=== PATIENT | male | born 1960 | race Caucasian/White ===

== ENCOUNTER 2016-03-07 22:31 | Inpatient (IN) | payer OTHER, MEDICAID ==
--- NOTE | 2016-03-07 23:29 | EDPHY ---
H & P Stated Complaint: M1 Hold Time Seen by Provider: 03/07/16 23:19 HPI/ROS: CHIEF COMPLAINT: Schizophrenia HISTORY OF PRESENT ILLNESS: Patient is a 55-year-old man with a history of schizophrenia who's therapist called police to go check on him today. The police found him in an apartment that was disheveled and without any food. His therapist told them that he was having command hallucinations although did not give any specific examples. The patient denies that he has. He denies hearing voices. He denies suicidal or homicidal ideations. He denies any recent illness. REVIEW OF SYSTEMS: Constitutional: denies: chills, fever, recent illness, recent injury EENTM: denies: blurred vision, double vision, nose congestion Respiratory: denies: cough, shortness of breath Cardiac: denies: chest pain, irregular heart rate, lightheadedness, palpitations Gastrointestinal/Abdominal: denies: abdominal pain, diarrhea, nausea, vomiting, blood streaked stools Genitourinary: denies: dysuria, frequency, hematuria, pain Musculoskeletal: denies: joint pain, muscle pain Skin: denies: lesions, rash, jaundice, bruising Neurological: denies: headache, numbness, paresthesia, tingling, dizziness, weakness Hematologic/Lymphatic: denies: blood clots, easy bleeding, easy bruising Immunologic/allergic: denies: HIV/AIDS, transplant EXAM: GENERAL: Disheveled HEAD: Atraumatic, normocephalic. EYES: Pupils equal round and reactive to light, extraocular movements intact, sclera anicteric, conjunctiva are normal. ENT: TMs normal, nares patent, oropharynx clear without exudates. Moist mucous membranes. NECK: Normal range of motion, supple without lymphadenopathy or JVD. LUNGS: Breath sounds clear to auscultation bilaterally and equal. No wheezes rales or rhonchi. HEART: Regular rate and rhythm without murmurs, rubs or gallops. ABDOMEN: Soft, nontender, normoactive bowel sounds. No guarding, no rebound. No masses appreciated. BACK: No CVA tenderness, no spinal tenderness, step-offs or deformities EXTREMITIES: diffuse excoriation NEUROLOGICAL: Cranial nerves II through XII grossly intact. Normal speech, normal gait. 5/5 strength, normal movement in all extremities, normal sensation PSYCH: Watching [employer] TV, minimally cooperative with questioning. SKIN: Warm, dry, normal turgor, no visible rashes or lesions. Source: Patient, Police - Personal History Current Tetanus Diphtheria and Acellular Pertussis (TDAP): Unsure - Medical/Surgical History Hx Asthma: No Hx Chronic Respiratory Disease: No Hx Diabetes: No Hx Cardiac Disease: No Hx Renal Disease: No Hx Cirrhosis: No Hx Alcoholism: Yes Hx HIV/AIDS: No Hx Splenectomy or Spleen Trauma: No Other PMH: Seizures, bipolar, schitzophrenia, depression. - Family History Significant Family History: Hypertension - Social History Smoking Status: Former smoker Alcohol Use: Heavy Drug Use: Marijuana Constitutional: Initial Vital Signs Temperature (C) 36.6 C 03/07/16 22:40 Heart Rate 105 H 03/07/16 22:40 Respiratory Rate 16 03/07/16 22:40 Blood Pressure 154/107 H 03/07/16 22:40 O2 Sat (%) 94 03/07/16 22:40 O2 Delivery Mode Room Air Allergies/Adverse Reactions: No Known Allergies Allergy (Unverified 03/07/16 23:24) Home Medications: Medication Instructions Recorded [facility] 03/07/16 Medical Decision Making ED Course/Re-evaluation: 2:45 a.m. patient accepted at [address] [place] [id number] Rollins. Patient has been medically cleared. Differential Diagnosis: Partial list of the Differential diagnosis considered include but were not limited to; schizophrenia, hallucinations, paranoia, substance abuse and although unlikely based on the history and physical exam, I also considered head injury, infection. - Data Points Laboratory Results: Laboratory Results 03/07/16 23:10 03/07/16 23:10 03/07/16 03/07/16 23:10 22:45 WBC 7.01 10^3/uL (3.80-9.50) RBC 4.72 10^6/uL (4.40-6.38) Hgb 14.6 g/dL (13.7-17.5) Hct 43.3 % (40.0-51.0) MCV 91.7 fL (81.5-99.8) MCH 30.9 pg (27.9-34.1) MCHC 33.7 g/dL (32.4-36.7) RDW 14.7 % (11.5-15.2) Plt Count 175 10^3/uL (150-400) MPV 11.5 fL (8.7-11.7) Neut % (Auto) 53.4 % (39.3-74.2) Lymph % (Auto) 32.4 % (15.0-45.0) [place] % (Auto) 8.6 % (4.5-13.0) Eos % (Auto) 4.6 % (0.6-7.6) Baso % (Auto) 0.7 % (0.3-1.7) Nucleat RBC Rel Count 0.0 % (0.0-0.2) Absolute Neuts (auto) 3.75 10^3/uL (1.70-6.50) Absolute Lymphs (auto) 2.27 10^3/uL (1.00-3.00) Absolute Monos (auto) 0.60 10^3/uL (0.30-0.80) Absolute Eos (auto) 0.32 10^3/uL (0.03-0.40) Absolute Basos (auto) 0.05 10^3/uL (0.02-0.10) Absolute Nucleated RBC 0.00 10^3/uL (0-0.01) Immature Gran % 0.3 % (0.0-1.1) Immature Gran # 0.02 10^3/uL (0.00-0.10) Sodium 141 mEq/L (134-144) Potassium 3.6 mEq/L (3.5-5.2) Chloride 103 mEq/L (97-110) Carbon Dioxide 30 mEq/l (22-31) Anion Gap 8 mEq/L (8-16) BUN 7 mg/dL (7-23) Creatinine 0.9 mg/dL (0.7-1.3) Estimated GFR > 60 Glucose 93 mg/dL (70-100) Calcium 8.9 mg/dL (8.5-10.4) Urine Opiates Screen NEGATIVE (NEGATIVE) Urine Barbiturates NEGATIVE (NEGATIVE) Ur Phencyclidine Scrn NEGATIVE (NEGATIVE) Ur Amphetamine Screen NEGATIVE (NEGATIVE) U Benzodiazepines Scrn NON-NEGATIVE H (NEGATIVE) Urine Cocaine Screen NEGATIVE (NEGATIVE) U Marijuana (THC) Screen NEGATIVE (NEGATIVE) Ethyl Alcohol < 10 mg/dL (0-10) Departure - Departure Disposition: [facility] IP Clinical Impression: Acute psychosis Condition: Fair
[2016-03-07 23:43] LABS: % IMMATURE GRANULYOCYTES 0.3 % (0.0-1.1); ABSOLUTE IMMATURE GRANULOCYTES 0.02 10^3/uL (0.00-0.10); ADD DIFF? NO; ADD MORPH? NO; ADD SCAN? NO; ATYPICAL LYMPHOCYTE FLAG 10 (0-99); FRAGMENT RBC FLAG 0 (0-99); HEMATOCRIT 43.3 % (40.0-51.0); HEMOGLOBIN 14.6 g/dL (13.7-17.5); LEFT SHIFT FLG 0 (0-99); LIPEMIA HEMOLYSIS FLAG 80 (0-99); MEAN CELL HEMOGLOBIN 30.9 pg (27.9-34.1); MEAN CELL HEMOGLOBIN CONCENTR. 33.7 g/dL (32.4-36.7); MEAN CELL VOLUME 91.7 fL (81.5-99.8); MEAN PLATELET VOLUME 11.5 fL (8.7-11.7); PLATELET CLUMPS FLAG 0 (0-99); PLATELET COUNT 175 10^3/uL (150-400); RED BLOOD CELL COUNT 4.72 10^6/uL (4.40-6.38); RED CELL DISTRIBUTION WIDTH 14.7 % (11.5-15.2)
[2016-03-07 23:55] LABS: ANION GAP 8 mEq/L (8-16); CALCIUM 8.9 mg/dL (8.5-10.4); CARBON DIOXIDE 30 mEq/l (22-31); CHLORIDE 103 mEq/L (97-110); CREATININE 0.9 mg/dL (0.7-1.3); ETHANOL SERUM < 10 mg/dL (0-10); GLOMERULAR FILTRATION RATE > 60; GLUCOSE 93 mg/dL (70-100); POTASSIUM 3.6 mEq/L (3.5-5.2); SODIUM 141 mEq/L (134-144)
[2016-03-08] MEDS ORDERED: BENZTROPINE MESYLATE 1 MG TAB PO PRN (01:53)
[2016-03-08] MEDS ORDERED: NICOTINE POLACRILEX 2 MG GUM B PRN (01:54)
[2016-03-08] MEDS ORDERED: MAGNESIUM HYDROXIDE 30 ML UDCUP PO PRN (01:54)
[2016-03-08] MEDS ORDERED: LORazepam 0.5 MG TAB PO PRN (01:54)
[2016-03-08] MEDS ORDERED: MAG HYDROX/AL HYDROX/SIMETH 30 ML UDCUP PO PRN (01:54)
[2016-03-08] MEDS ORDERED: ACETAMINOPHEN 325 MG TAB PO PRN (01:54)
[2016-03-08] MEDS: TEMAZEPAM 15 MG CAP PO SCH ×2 (02:34→21:27)
[2016-03-08] MEDS ORDERED: OLANZapine DISINTEGR 10 MG TAB PO PRN (07:43)
[2016-03-08] MEDS: ARIPiprazole 5 MG TAB PO SCH (08:35)
[2016-03-08] MEDS ORDERED: VIIBRYD 40MG PO SCH (09:00)
[2016-03-08] MEDS ORDERED: diphenhydrAMINE 25 MG CAP PO PRN (10:24)
--- NOTE | 2016-03-08 12:36 | BAPA ---
[f rep st] ADMISSION PSYCHIATRIC ASSESSMENT DATE OF SERVICE: 03/08/2016 This is an initial psychiatric evaluation. CHIEF COMPLAINT: "I was itching all over." HISTORY OF PRESENT ILLNESS: The patient is a 55-year-old single male with a long history of chronic schizophrenia, who is followed at [facility] in [place]. The patient's therapist called police to do a welfare check on him on 03/07/16. Police found him in an apartment that was disheveled , and without any food. The patient had also thrown out his furniture. It appeared that the patient had been off his psychiatric meds for some time; however, he stated he has only been off them for 2 days, however he is a poor historian. The hold read. "respondent was contacted in his home, and Law Enforcement notified that there was no food in his home and respondent had thrown out his furniture. Respondent is having command hallucinations to scratch his body. Respondent is gravely disabled." The patient had been dropped off at the walk-in clinic by [facility] after they responded to a welfare check with Alee TRIMBLE. They discovered that the patient had thrown out his furniture, had no food in his refrigerator, and could not report when he last ate. Per [facility] log, the recovery resident caregiver, RCC, stated that the patient's landlord reported the patient was throwing out furniture and had reported to staff that he was not taking his medications. The patient had been encouraged to restart his medications but refused and stated that his medications were not working. RCC reported to [facility] that the patient was not at his baseline and was decompensating. After being evaluated by [facility] at the walk-in clinic, the patient was sent to [facility] for medical clearance. The patient has a long history of schizophrenia and depression. The patient currently denies any suicidal or homicidal ideation; however, the patient did admit to feeling depressed and stated his depression is "much worse. " PSYCHIATRIC HISTORY: Records state the patient was hospitalized in 2010 at [facility] in [place], and shortly thereafter he threatened his own health in 2011 by drinking too much water, which required stabilization in [facility]. The patient reports to this MD he has been at [facility] twice. He states he started hearing voices at age 26 while he was working and states he has been on disability for 8 years for schizophrenia. The patient has a history of auditory hallucinations. He has a delusion that people are still after him for stealing from an employer in the and also recent delusions about moving and about people being after him. He believes that 2 men called "Klarissa" bought a machine causing him to itch. The patient sees Anna Luciano MD, and therapist Sundeep Villegas and is supposed to be taking Abilify 15 mg q.a.m. , Viibryd 20 mg 2 tablets in the morning, Cogentin 0.5 b.i.d. p.r.n. EPS, and Restoril 30 mg q.h.s. The patient currently reports he is eating and sleeping well. MEDICAL PROBLEMS: None reported. SUBSTANCE ABUSE: The patient states he will have an occasional beer. He was negative for all substances except benzodiazepines. BAL was negative. FAMILY HISTORY: None known. SOCIAL HISTORY: The patient states he was born in [place]. He graduated high school and had 1 semester of college and then dropped out. He has 1 brother who lives in [place], and his father lives in [place]. The patient states his mother . He denies any history of abuse. Denies any family psychiatric history or addiction history in his family. The patient is single with no children. Never been . Lives alone in an apartment in [place]. He is socially isolated and has not seen his friends in a while. In the past, he worked at [employer] and [employer]. 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 The patient reportedly spent time in care home in 1989 after he was chased by police and spent a brief time in care home after being accused of stealing from his employer. He states he enjoys skiing and playing basketball. MENTAL STATUS EXAMINATION: The patient is alert and oriented x4. Poor eye contact but calm and cooperative. Mood is neutral. Affect is constricted. Thoughts are illogical. The patient appears to be responding to internal stimuli but currently denies auditory or visual hallucinations. Denies suicidal or homicidal ideation. Patient with chronic paranoid ideation. States sleep, appetite, and energy level are good. Speech is rambling, difficult to understand. He talks about men causing him itching all over . Positive somatic preoccupation. Insight and judgment are limited. IMPRESSION: Chronic disorganized schizophrenia. No medical problems. No substance abuse. Global Assessment of Functioning on admission is 20. PLAN: We will restart the patient's medications, which include Abilify 15 mg daily, Cogentin 0.5 mg b.i.d. p.r.n., Restoril 30 mg q.h.s. Vibryd is nonformulary. We will also order Benadryl 25 mg q.6 hours p.r.n itching, nicotine gum, and lorazepam and Zyprexa p.r.n. The patient will be seen by the career counselor and the medical physician. He meets criteria for inpatient hospitalization at this time. /[id number]/MODL MTDD
[2016-03-08] MEDS: VIIBRYD 20 MG PO SCH (15:33)
[2016-03-08] MEDS: amLODIPine BESYLATE 5 MG TAB PO SCH (16:20)
--- NOTE | 2016-03-08 16:47 | GCON ---
[f rep st] CONSULTATION INTERNAL MEDICINE CONSULTATION DATE OF CONSULTATION: 03/08/2016 REFERRING PHYSICIAN: Fariba Moreno MD REASON FOR REFERRAL: Medical clearance for inpatient behavioral health stay. HISTORY OF PRESENT ILLNESS: Mr. Cruz was brought to the emergency department by police after a welfare check, which had been called in by his therapist. He has a history of schizophrenia. He was found in an apartment that was disheveled. He had no food and had been throwing his furniture out of the apartment. He was evaluated in the emergency department and transferred to inpatient behavioral health for further psychiatric care. Currently, he complains of feeling itchy. He denies any rash. Otherwise, he is without any acute medical complaints. PAST MEDICAL HISTORY: 1. Schizophrenia. 2. Hypertension. PAST SURGICAL HISTORY: He reports he had surgical repair on his right ear, having been bit by dog. MEDICATIONS: 1. Benztropine 0.5 mg p.o. b.i.d. p.r.n. 2. Vilazodone 40 mg p.o. daily. 3. Temazepam 30 mg p.o. q.h.s. 4. Aripiprazole 15 mg p.o. daily. ALLERGIES: There are no known drug allergies. SOCIAL HISTORY: He lives alone in an apartment. He has worked in the past, but currently he lives on disability. He is a former smoker. The emergency department note reports that he is a marijuana user. FAMILY HISTORY: Noncontributory. REVIEW OF SYSTEMS: He confirms feeling itchy. He denies any rash and specifically, there is no rash or itchiness in the web spaces between his fingers or toes. Otherwise, a 10-point review of systems was negative. PHYSICAL EXAM: VITALS: Blood pressure is 164/96 at 2:17 this morning, heart rate was 86, respiratory rate was 16, oxygen saturation is 97% on room air, temperature is 36.4 degrees centigrade. His weight is 111.1 kg for a body mass index of 36.2. GENERAL: This is an obese man, appears his chronologic age, cooperative, and in no acute distress. HEENT: Extraocular movements are intact. Pupils are equal, round, and reactive to light. Mucous membranes are moist. Dentition is in good condition. He has an uncrowded airway, Mallampati class 1. NECK: Supple. HEART: There is a regular rate and rhythm with no murmurs, rubs, or gallops. LUNGS: Clear to auscultation bilaterally. ABDOMEN : Soft, nontender, nondistended with normoactive bowel sounds. EXTREMITIES: There is no cyanosis, clubbing, or edema. SKIN: There is no rash on his back, but there are multiple areas of excoriation. There are no findings in the web spaces of the fingers. NEUROLOGIC: He is alert. Orientation was not tested. He is somewhat distracted. Cranial nerves 2-12 are grossly intact. There is no focal weakness. Sensation is intact to light touch. Gait: He is slow to initiate with short steps and a wide base; however, subsequently his gait normalizes. He does have en bloc turning. LABORATORY STUDIES: Drawn in the emergency department: CBC was completely within normal limits. Serum chemistry revealed normal renal function and electrolytes. Toxicology screen in the serum was negative for ethyl alcohol. In the urine was non-negative for benzodiazepines and was otherwise negative for substances of abuse. ASSESSMENT AND RECOMMENDATIONS: 1. Mental health issues: Pending further evaluation and management per Psychiatry and the mental health team. 2. Hypertension: He is unclear as to what medications he may have taken before. I will start amlodipine 5 mg p.o. daily. He should have serial monitoring of his blood pressure, and would consider titrating or adding additional medications should he not have adequate control. 3. Obesity: Consider caution regarding medications which could cause further weight gain; however, psychosocial stabilization remains first priority. Given his history of hypertension, I will add a lipid panel to determine whether he needs further primary prevention of cardiovascular risk factors. 4. Pruritus: I will prescribe a skin emollient. I will also order a set of liver function tests to rule out any other possible metabolic causes of his pruritus. I see no medical contraindications to the patient's continued stay in the inpatient behavioral health unit, or to any psychiatric medications or procedures. Thank you very much for including me in the care of this patient, and please do not hesitate to contact me should there be a need for further medical evaluation. /[id number]/MODL MTDD
[2016-03-08 20:32] LABS: ALANINE AMINOTRANSFERASE 26 IU/L (21-72); ALBUMIN 3.3 g/dL (3.5-5.0); ALKALINE PHOSPHATASE 72 IU/L (38-126); ASPARTATE AMINOTRANSFERASE 26 IU/L (17-59); BILIRUBIN,TOTAL 0.9 mg/dL (0.1-1.4); BILIRUBIN-CONJUGATED 0.4 mg/dL (0.0-0.5); BILIRUBIN-UNCONJUGATED 0.5 mg/dL (0.0-1.1); CHOLESTEROL 134 mg/dL (140-220); CHOLESTEROL/HDL RATIO 3.19 RATIO (1.00-4.97); HIGH DENSITY LIPOPROTEIN 42 mg/dL (40-65); LDL/HDL RATIO 1.52 RATIO (1.00-3.64); LOW DENSITY LIPOPROTEIN 64 mg/dL (80-100); NON-HIGH DENSITY LIPOPROTEIN 92 mg/dL (90-129); TOTAL PROTEIN 6.1 g/dL (6.3-8.2); TRIGLYCERIDE 144 mg/dL (40-150); VERY LOW DENSITY LIPOPROTEINS 28 mg/dL (8-25)
[2016-03-08] MEDS: AQUAPHOR OINTMENT 3.5 OZ JAR TP SCH (21:27)
[2016-03-09] MEDS: ARIPiprazole 5 MG TAB PO SCH (09:01)
[2016-03-09] MEDS: VIIBRYD 20 MG PO SCH (09:02)
[2016-03-09] MEDS: amLODIPine BESYLATE 5 MG TAB PO SCH (09:02)
[2016-03-09] MEDS: AQUAPHOR OINTMENT 3.5 OZ JAR TP SCH ×2 (09:04→20:48)
--- NOTE | 2016-03-09 11:27 | SOAPPROG ---
RAVI Progress Note Assessment/Plan: Assessment: Pt is a 55 y/o S Hisp male with a long hx of Schizophrenia who was put on an M1 after a welfare check. The pt had been off his psych meds and had thrown his furniture outside and was delusional about moving and had decompensated from baseline. He was deemed to be gravely disabled and reportedly had not been eating regularly. Plan:con't pt's outpt meds pt will be put on a STC will consider WH when more stable. 03/09/16 11:22 Subjective: "Okay." Objective: Vital Signs Temp Pulse Resp BP Pulse Ox 35.7 C L 73 12 159/79 H 97 03/09/16 06:00 03/09/16 06:00 03/09/16 06:00 03/09/16 06:00 03/09/16 06:00 Pt is A+O mood-neutral affect-blunted denies AH but appears to be responding to internal stimuli thoughts-poverty of thought content, paranoid no S/H I only slept 1.5 hours last night he states he is eating and he is attending groups + delusions that he is moving speech-rambling, mumbles, hard to understand +FERNANDA memory/conc-impaired by psychosis I/J-limited - Time Spent With Patient Time Spent With Patient: 20' - Pending Discharge Pending Discharge Within 24 Hours: No Pending Discharge Within 48 Hours: No ICD10 Worksheet Patient Problems: Problems Problem Status Diagnosed Acute psychosis Acute
[2016-03-09] MEDS: TEMAZEPAM 15 MG CAP PO SCH (20:42)
[2016-03-10] MEDS: VIIBRYD 20 MG PO SCH (08:02)
[2016-03-10] MEDS: ARIPiprazole 5 MG TAB PO SCH (08:03)
[2016-03-10] MEDS: amLODIPine BESYLATE 5 MG TAB PO SCH (08:07)
[2016-03-10] MEDS: AQUAPHOR OINTMENT 3.5 OZ JAR TP SCH ×2 (08:08→20:26)
--- NOTE | 2016-03-10 13:34 | SOAPPROG ---
SOAP Progress Note Assessment/Plan: Assessment: Plan: 03/10/16 13:34 Slow improvement. CCM. Subjective: Pt seen, discussed with staff. Reports doing well. Sitting in day room quietly. Staring at TV that is off. Minimally interactive with others. Agrees to stay voluntarily. Compliant with meds. Objective: Vital Signs Temp Pulse Resp BP Pulse Ox 36.3 C 84 14 126/86 H 97 03/10/16 06:00 03/10/16 06:00 03/10/16 06:00 03/10/16 08:07 03/10/16 06:00 - Time Spent With Patient Time Spent With Patient: 15" - Pending Discharge Pending Discharge Within 24 Hours: No Pending Discharge Within 48 Hours: No ICD10 Worksheet Patient Problems: Problems Problem Status Diagnosed Acute psychosis Acute
[2016-03-10] MEDS: TEMAZEPAM 15 MG CAP PO SCH (21:37)
[2016-03-11] MEDS: ARIPiprazole 5 MG TAB PO SCH (08:36)
[2016-03-11] MEDS: amLODIPine BESYLATE 5 MG TAB PO SCH (08:37)
[2016-03-11] MEDS: AQUAPHOR OINTMENT 3.5 OZ JAR TP SCH ×2 (08:42→21:34)
[2016-03-11] MEDS: VIIBRYD 20 MG PO SCH (09:06)
[2016-03-11] MEDS: TEMAZEPAM 15 MG CAP PO SCH (21:35)
[2016-03-12] MEDS: ARIPiprazole 5 MG TAB PO SCH (07:36)
[2016-03-12] MEDS: amLODIPine BESYLATE 5 MG TAB PO SCH (07:36)
[2016-03-12] MEDS: AQUAPHOR OINTMENT 3.5 OZ JAR TP SCH ×2 (10:16→20:57)
[2016-03-12] MEDS: VIIBRYD 20 MG PO SCH (10:24)
--- NOTE | 2016-03-12 10:56 | SOAPPROG ---
RAVI Progress Note Assessment/Plan: Assessment: Pt is a 55 y/o S Hisp male with a long hx of Schizophrenia who was put on an M1 after a welfare check. The pt had been off his psych meds and had thrown his furniture outside and was delusional about moving and had decompensated from baseline. He was deemed to be gravely disabled and reportedly had not been eating regularly. 03/12/16-pt still with poor ADL's and needing assistance-when pt at baseline he does his own ADL's Plan:con't pt's outpt meds pt is on a STC will consider WH when more stable. 03/12/16 10:53 Subjective: no c/o but was asking another staff if he could go home Objective: Vital Signs Temp Pulse Resp BP Pulse Ox 36.8 C 78 16 157/82 H 99 03/12/16 00:30 03/12/16 00:30 03/12/16 00:30 03/12/16 00:30 03/12/16 00:30 Pt is A+O disheveled mood-neutral affect-flat +AH + somatic delusions thoughts-poverty of thought content speech-monotone slept 7.5 hours good appetite no S/H I no FERNANDA no VH memory/conc-poor I/J-limited - Time Spent With Patient Time Spent With Patient: 20' - Pending Discharge Pending Discharge Within 24 Hours: No Pending Discharge Within 48 Hours: No ICD10 Worksheet Patient Problems: Problems Problem Status Diagnosed Acute psychosis Acute
--- NOTE | 2016-03-12 11:23 | SOAPPROG ---
SOAP Progress Note Assessment/Plan: Assessment: Plan: 03/10/16 13:34 Slow improvement. CCM. 03/12/16 11:22 No interval change. CCM. Subjective: LATE ENTRY FOR 03/11/16 Pt seen, discussed with staff. Reports feeling "OK." Continues to sit in day room, but not interact with others. Gives one word answers to questions. Adequately groomed, generally coop. Compliant with meds. Objective: Vital Signs Temp Pulse Resp BP Pulse Ox 36.8 C 78 16 157/82 H 99 03/12/16 00:30 03/12/16 00:30 03/12/16 00:30 03/12/16 00:30 03/12/16 00:30 MSE: Calm, coop, though guarded. Affect is blunted, almost flat. Mood is "OK. " TP abbreviated with notable poverty of thought. TC reveals likely paranoia. - Time Spent With Patient Time Spent With Patient: 15" - Pending Discharge Pending Discharge Within 24 Hours: No Pending Discharge Within 48 Hours: No ICD10 Worksheet Patient Problems: Problems Problem Status Diagnosed Acute psychosis Acute
[2016-03-12] MEDS: TEMAZEPAM 15 MG CAP PO SCH (20:56)
[2016-03-13] MEDS: amLODIPine BESYLATE 5 MG TAB PO SCH (08:16)
[2016-03-13] MEDS: ARIPiprazole 5 MG TAB PO SCH (08:16)
[2016-03-13] MEDS: AQUAPHOR OINTMENT 3.5 OZ JAR TP SCH ×2 (08:19→20:37)
[2016-03-13] MEDS: VIIBRYD 20 MG PO SCH (08:32)
[2016-03-13] MEDS ORDERED: ARIPIPRAZOLE (ABILIFY MAINTENA) 400 MG VIAL IM ONE (10:45)
--- NOTE | 2016-03-13 11:13 | SOAPPROG ---
RAVI Progress Note Assessment/Plan: Assessment: Pt is a 55 y/o S Hisp male with a long hx of Schizophrenia who was put on an M1 after a welfare check. The pt had been off his psych meds and had thrown his furniture outside and was delusional about moving and had decompensated from baseline. He was deemed to be gravely disabled and reportedly had not been eating regularly. 03/12/16-pt still with poor ADL's and needing assistance-when pt at baseline he does his own ADL's 03/13/16-pt is improving but needs pants that fit-agrees to take Abilify Maintain injection-ordered Plan:con't pt's outpt meds pt is on a STC will consider WH Thurs Pt has agreed to get an Abilify Maintaina injection 03/13/16 11:11 Subjective: no c/o Objective: Vital Signs Temp Pulse Resp BP Pulse Ox 36.3 C 85 14 140/91 H 96 03/13/16 08:21 03/13/16 08:21 03/13/16 00:30 03/13/16 08:21 03/13/16 08:21 Pt is A+O calm mood-neutral affect-blunted denies A/V H + chronic delusions of these 2 men that made a machine in 2008 that caused him to itch denies current A/V H pt is attending groups attending to ADL's thoughts-logical but with poverty of thought content speech-monotone memory-fair conc-fair no FERNANDA I/J-fair - Time Spent With Patient Time Spent With Patient: 20' - Pending Discharge Pending Discharge Within 24 Hours: No Pending Discharge Within 48 Hours: Yes Pending Discharge Date: 03/15/16 Pending Discharge Time: 11:00 ICD10 Worksheet Patient Problems: Problems Problem Status Diagnosed Acute psychosis Acute
[2016-03-13] MEDS: TEMAZEPAM 15 MG CAP PO SCH (20:48)
[2016-03-14] MEDS: ARIPiprazole 5 MG TAB PO SCH (08:35)
[2016-03-14] MEDS: VIIBRYD 20 MG PO SCH (08:36)
[2016-03-14] MEDS: amLODIPine BESYLATE 5 MG TAB PO SCH (08:36)
[2016-03-14] MEDS: AQUAPHOR OINTMENT 3.5 OZ JAR TP SCH ×2 (09:09→21:22)
--- NOTE | 2016-03-14 13:33 | SOAPPROG ---
SOAP Progress Note Assessment/Plan: Assessment: Plan: 03/10/16 13:34 Slow improvement. CCM. 03/12/16 11:22 No interval change. CCM. 03/14/16 13:32 Approaching baseline. CCM. Subjective: Pt seen, discussed with staff. Remains quiet, internally focused. Present in the milieu and attending groups. He offers no c/o's. Agreeable to going to . Compliant with meds. Objective: Vital Signs Temp Pulse Resp BP Pulse Ox 36.3 C 92 14 132/81 H 97 03/14/16 00:30 03/14/16 08:52 03/14/16 08:52 03/14/16 08:52 03/14/16 08:52 MSE: Marginally groomed, coop. Affect is blunted. Mood is "OK." TP abbreviated, but generally linear. TC reveals paranoid and bizarre delusions, IOR's. No SI/HI/. - Time Spent With Patient Time Spent With Patient: 15" ICD10 Worksheet Patient Problems: Problems Problem Status Diagnosed Acute psychosis Acute
[2016-03-14] MEDS: TEMAZEPAM 15 MG CAP PO SCH (21:19)
[2016-03-15] MEDS: ARIPiprazole 5 MG TAB PO SCH (08:17)
[2016-03-15] MEDS: VIIBRYD 20 MG PO SCH (08:17)
[2016-03-15] MEDS: amLODIPine BESYLATE 5 MG TAB PO SCH (08:17)
[2016-03-15] MEDS: AQUAPHOR OINTMENT 3.5 OZ JAR TP SCH (08:25)
--- NOTE | 2016-03-15 13:32 | BDS ---
[f rep st] BEHAVIORAL HEALTH DISCHARGE SUMMARY CHIEF COMPLAINT: "I was itching all over." HISTORY OF PRESENT ILLNESS: The patient is a 55-year-old, single, male , who has a long history of chronic schizophrenia, who is followed by [facility] in [place]. Patient's therapist called police to do a welfare check on him on 03/07/2016. Police found him in an apartment that was disheveled without any food. The patient had also thrown out his furniture. It appeared that the patient had been off his psych medications for some time; however, he stated he had only been off them for 2 days. However, he was a poor historian. The M1 hold read, "Respondent was contacted in his home and law enforcement noticed there was no food in his home and respondent had thrown out his furniture. Respondent is having command hallucinations to scratch his body. Respondent is gravely disabled." ADMISSION DIAGNOSIS: Chronic disorganized schizophrenia. No medical problems. No substance abuse. Global Assessment of Functioning on admission was 20. HOSPITAL COURSE: The patient was restarted on his outpatient medications which were Abilify 15 mg daily, Cogentin 0.5 mg b.i.d. p.r.n. EPS, and Restoril 30 mg at bedtime. Viibryd was not ordered as it is non-formulary. Benadryl was ordered 25 mg q.6 hours p.r.n., as well as cream for itching. Patient stabilized over time. At first he was isolative. He then began attending groups. He was eating well and compliant with all medications, and had no side effects. The patient was offered Abilify Maintena injection, which was given on 03/13/2016. The patient had delusions that there were 2 men called "liu" causing him to itch and scratch on his arms. He stated the day of discharge that they were no longer doing this. The patient was sleeping 8 hours, eating and attending groups. He had good energy level. He returned to his baseline. At baseline, the patient is a quiet man with negative symptoms of schizophrenia who takes care of his ADL's which he was doing. People who knew him felt he was at baseline. [facility] accepted him. The patient was put on a short- term cert as he did not understand the concept of signing in voluntarily; however, this was dropped upon discharge. DISCHARGE MEDICATIONS: Abilify 15 mg daily, Abilify Maintena 400 mg IM due on 03/05/2016, Restoril 30 mg at bedtime p.r.n. insomnia, continue Viibryd 40 mg daily, Norvasc 5 mg daily, Benadryl 25 mg q.6 hours p.r.n. itching. MENTAL STATUS ON DISCHARGE: Patient is alert and oriented x4. Mood is neutral. Affect is blunted. The patient denies current auditory or visual hallucinations. He feels the liu are not causing him to itch today. Thoughts: Poverty of thought content. Speech is monotone. No suicidal or homicidal ideation. Sleep, appetite and energy level are good. Memory is fair. IQ was within normal limits. Insight and judgment are fair.and improved since admission DISCHARGE DIAGNOSIS: Chronic disorganized schizophrenia. No medical problems. No substance abuse. Global Assessment of Functioning on discharge was 50. DISCHARGE PLAN: Patient will be transferred to [facility]. They have accepted him for admission. He will be followed by [facility]. His short-term cert was dropped and he was transferred voluntarily and he was psychiatrically and medically stable for transfer. /[id number]/MODL MTDD
[2016-03-15 17:35] VITALS: BP 137/92; PULSE 88; RESP 16; TEMP 97.3; O2SAT 92
== END 2016-03-15 17:35 | DRG 885 ==
LOC: EDUNIT# → BBEH 03-08 01:43
PROVIDERS: ADMIT Psychiatry & Neurology Psychiatry; ATTEND Psychiatry & Neurology Psychiatry
DX: F20.1 Disorganized schizophrenia (principal); T43.506A Underdosing of unspecified antipsychotics and neuroleptics, initial encounter; I10 Essential (primary) hypertension; E66.9 Obesity, unspecified; L29.9 Pruritus, unspecified; Z87.891 Personal history of nicotine dependence
CPT/HCPCS: 80305; G0480

== ENCOUNTER 2017-03-20 20:04 | Emergency (ER) | payer OTHER, MEDICAID ==
[2017-03-20] MEDS ORDERED: NS 1,000 ML IV ONE (20:09)
[2017-03-20 20:20] LABS: PLATELET COUNT 218 10^3/uL (150-400)
--- NOTE | 2017-03-20 20:23 | EDPHY ---
H & P Source: Patient Exam Limitations: No limitations - Medical/Surgical History Hx Asthma: No Hx Chronic Respiratory Disease: No Hx Diabetes: No Hx Cardiac Disease: No Hx Renal Disease: No Hx Cirrhosis: No Hx Alcoholism: Yes Hx HIV/AIDS: No Hx Splenectomy or Spleen Trauma: No Other PMH: Seizures, bipolar, schitzophrenia, depression. - Family History Significant Family History: No pertinent family hx - Social History Smoking Status: Former smoker Alcohol Use: Heavy Time Seen by Provider: 03/20/17 20:05 HPI/ROS: CHIEF COMPLAINT: fall HISTORY OF PRESENT ILLNESS: The patient is a 56-year-old man who was drinking out today at the bar. He tried to walk up a couple of steps and fell forward. He hit his face on the ground. He has no crepitus in his nose and epistaxis. He has a external right nasal laceration. It is not through and through. He also has a bump to the left frontal region of his head. He denies pain. He is moving all extremities. No sign of thoracic trauma. He denies blood thinners. He otherwise answers negative to past medical history. The patient was ambulatory at the scene. Cervical collar in place on arrival. REVIEW OF SYSTEMS: Unable to obtain secondary to condition EXAM: GENERAL: Bloody, intoxicated HEAD: Hematoma left forehead EYES: Pupils equal round and reactive to light, extraocular movements intact, sclera anicteric, conjunctiva are normal. ENT: TMs normal, nares patent, laceration externally, oropharynx bloody. Moist mucous membranes. NECK: Normal range of motion, supple without lymphadenopathy or JVD. No obvious deformity. Cervical collar extremely male placed. I removed and braced with sheets. LUNGS: Breath sounds clear to auscultation bilaterally and equal. No wheezes rales or rhonchi. HEART: Regular rate and rhythm without murmurs, rubs or gallops. ABDOMEN: Soft, nontender, normoactive bowel sounds. No guarding, no rebound. No masses appreciated. BACK: No CVA tenderness, no spinal tenderness, step-offs or deformities EXTREMITIES: Normal range of motion, no pitting or edema. No clubbing or cyanosis. NEUROLOGICAL: Cranial nerves II through XII grossly intact. Normal speech, normal gait. 5/5 strength, normal movement in all extremities, normal sensation PSYCH: Normal mood, normal affect. SKIN: Warm, dry, normal turgor, no visible rashes or lesions. (Hai Bocanegra) Constitutional: Initial Vital Signs Temperature (C) 36.6 C 03/20/17 20:05 Heart Rate 84 03/20/17 20:05 Respiratory Rate 16 03/20/17 20:05 Blood Pressure 124/77 H 03/20/17 20:05 O2 Sat (%) 92 03/20/17 20:05 O2 Delivery Mode Room Air Allergies/Adverse Reactions: No Known Allergies Allergy (Unverified 03/07/16 23:24) Home Medications: Medication Instructions Recorded ARIPiprazole [Abilify] 15 mg PO DAILY 03/07/16 Benztropine Mesylate 0.5 mg PO BID PRN 03/08/16 Temazepam 30 mg PO HS PRN 03/08/16 ARIPiprazole [Abilify 5 mg (*)] 15 mg PO DAILY #30 tab 03/15/16 ARIPiprazole [Abilify Maintena] 400 mg IM Q30D #1 vial 03/15/16 Acetaminophen [Tylenol 325mg (*)] 650 mg PO Q4HRS PRN #0 tab 03/15/16 Benztropine Mesylate [Cogentin] 0.5 mg PO BID PRN #60 tab 03/15/16 Mineral Oil/Pet Hy-Phl [Aquaphor 1 ras TP BID #0 jar 03/15/16 Ointment (*)] Temazepam [Restoril 15 MG (*)] 30 mg PO HS #60 cap 03/15/16 Vilazodone HCl [Viibryd] 40 mg PO DAILY #30 tablet 03/15/16 amLODIPine BESYLATE [Norvasc 5 mg 5 mg PO DAILY #30 tab 03/15/16 (*)] diphenhydrAMINE [Benadryl 25 MG 25 mg PO Q6HRS PRN #30 cap 03/15/16 (*)] Medical Decision Making - Diagnostics Imaging: Discussed imaging studies w/ microfilm processor Radiologist - Diagnostics Imaging Results: Imaging Impressions Cervical Spine CT 03/20/17 20:09 Impression: 1. No definite fracture. 2. Moderate cervical spondylosis at C5-C6 and C6-C7. 3. If there is persistent pain or a neurological deficit, recommend MR cervical spine and consider flexion and extension views, if clinically indicated. Findings and recommendations discussed with Emergency Department physician, Hai Bocanegra M.D., at 2128 hours, on March 20, 2017. Final report concurs with initial preliminary interpretation. Head CT 03/20/17 20:09 Impression: 1. Comminuted displaced nasal bone fracture. 2. Left parietal scalp hematoma. 3. No skull fracture. 4. No epidural or subdural hematoma. 5. No intracranial hemorrhage or mass effect. Findings and recommendations discussed with Emergency Department physician, Hai Bocanegra M.D., at 2130 hours, on March 20, 2017. Final report concurs with initial preliminary interpretation. Abdomen CT 03/20/17 20:10 Impression: 1. No abdominal or pelvic hemorrhage or organ laceration. 2. Atherosclerotic aorta, without aneurysm. Findings and recommendations discussed with Emergency Department physician, Hai Bocanegra, at 2142 hours, on March 20, 2017. Final report concurs with initial preliminary interpretation. Chest CT 03/20/17 20:10 Impression: 1. No pneumothorax or definite rib fracture. 2. Right lower lobe pneumonia. 3. Possible patchy right upper lobe posterior segment pneumonia. 4. No pleural effusion. Findings and recommendations discussed with Emergency Department physician, Hai Bocanegra M.D., at 2140 hours, on March 20, 2017. Final report concurs with initial preliminary interpretation. Lumbar Spine CT 03/20/17 20:10 Impression: 1. No definite fracture. 2. Moderate degenerative disk disease at L4-L5. 3. If there is persistent pain or a neurological deficit, recommend MR lumbar spine and consider flexion and extension views, if clinically indicated. Findings and recommendations discussed with Emergency Department physician, Hai Bocanegra M.D., at 2143 hours, on March 20, 2017. Final report concurs with initial preliminary interpretation. Thoracic Spine CT 03/20/17 20:10 Impression: 1. No definite thoracic compression fracture. 2. If there is persistent pain or a neurological deficit, recommend MR thoracic spine. Findings and recommendations discussed with Emergency Department physician, Hai Bocanegra M.D., at 2130 hours, on March 20, 2017. Final report concurs with initial preliminary interpretation. Procedures: Procedure: Laceration repair. Verbal consent was obtained from the patient. The 2 cm right nares externally laceration was not anesthetized. The wound was irrigated copiously according to protocol, draped and explored to its base. It was approximately 1/2 cm deep not through and through. There were no deep structures involved. No tendon, nerve, or vascular injury was identified when explored. No foreign body was identified. The wound was repaired with 5.0 Prolene, 5 sutures, interrupted. The wound repair was simple without wound margin revisement or multiple flap alignment. The procedure was performed by myself. A dressing was then placed with sterile gauze and bacitracin. (Hai Bocanegra) ED Course/Re-evaluation: The patient has nasal bone fractures but no other obvious injuries. He has right lower lobe pneumonia versus atelectasis, question aspiration. He is not coughing. He is not hypoxic. Is a small left lower lobe nodule CT follow-up in 6 months. Tolerated suture without difficulty. Care transferred at shift change awaiting sobriety. (Hai Bocanegra) Differential Diagnosis: Partial list of the Differential diagnosis considered include but were not limited to; nasal bone fracture, intoxication, intracranial injury and although unlikely based on the history and physical exam, I also considered spinal injury, thoracic injury. (Hai Bocanegra) Other Provider: 2200 care assumed by me from Dr. Bocanegra pending sober evaluation. 2330 patient is ambulating unassisted in the emergency department. He is without complaint. He is medically cleared for [facility]. ( Jett Banegas) - Data Points Laboratory Results: Laboratory Results 03/20/17 20:13 03/20/17 20:13 03/20/17 03/20/17 03/20/17 20:13 20:13 20:13 WBC 9.55 10^3/uL H 10^3/uL (3.80-9.50) RBC 4.95 10^6/uL 10^6/uL (4.40-6.38) Hgb 15.5 g/dL g/dL (13.7-17.5) POC Hgb Hct 46.0 % % (40.0-51.0) POC Hct MCV 92.9 fL fL (81.5-99.8) MCH 31.3 pg pg (27.9-34.1) MCHC 33.7 g/dL g/dL (32.4-36.7) RDW 14.3 % % (11.5-15.2) Plt Count 218 10^3/uL 10^3/uL (150-400) MPV 11.0 fL fL (8.7-11.7) Neut % (Auto) 32.1 % L % (39.3-74.2) Lymph % (Auto) 54.2 % H % (15.0-45.0) [place] % (Auto) 10.1 % % (4.5-13.0) Eos % (Auto) 2.9 % % (0.6-7.6) Baso % (Auto) 0.5 % % (0.3-1.7) Nucleat RBC Rel Count 0.0 % % (0.0-0.2) Absolute Neuts (auto) 3.06 10^3/uL 10^3/uL (1.70-6.50) Absolute Lymphs (auto) 5.18 10^3/uL H 10^3/uL (1.00-3.00) Absolute Monos (auto) 0.96 10^3/uL H 10^3/uL (0.30-0.80) Absolute Eos (auto) 0.28 10^3/uL 10^3/uL (0.03-0.40) Absolute Basos (auto) 0.05 10^3/uL 10^3/uL (0.02-0.10) Absolute Nucleated RBC 0.00 10^3/uL 10^3/uL (0-0.01) Immature Gran % 0.2 % % (0.0-1.1) Immature Gran # 0.02 10^3/uL 10^3/uL (0.00-0.10) PT 12.7 SEC SEC (12.0-15.0) INR 0.93 (0.83-1.16) APTT 26.4 SEC SEC (23.0-38.0) POC Sodium Sodium 140 mEq/L mEq/L (135-145) POC Potassium Potassium 3.8 mEq/L mEq/L (3.5-5.2) POC Chloride Chloride 104 mEq/L mEq/L (97-110) Carbon Dioxide 22 mEq/l mEq/l (22-31) Anion Gap 14 mEq/L mEq/L (8-16) POC BUN BUN 12 mg/dL mg/dL (7-23) Creatinine 0.8 mg/dL mg/dL (0.7-1.3) POC Creatinine Estimated GFR > 60 Glucose 105 mg/dL H mg/dL (70-100) POC Glucose Calcium 9.4 mg/dL mg/dL (8.5-10.4) Ethyl Alcohol 276 mg/dL H mg/dL (0-10) 03/20/17 20:06 WBC RBC Hgb POC Hgb 16.7 gm/dL gm/dL (13.7-17.5) Hct POC Hct 49 % % (40-51) MCV MCH MCHC RDW Plt Count MPV Neut % (Auto) Lymph % (Auto) [place] % (Auto) Eos % (Auto) Baso % (Auto) Nucleat RBC Rel Count Absolute Neuts (auto) Absolute Lymphs (auto) Absolute Monos (auto) Absolute Eos (auto) Absolute Basos (auto) Absolute Nucleated RBC Immature Gran % Immature Gran # PT INR APTT POC Sodium 141 mEq/L mEq/L (135-145) Sodium POC Potassium 3.2 mEq/L L mEq/L (3.3-5.0) Potassium POC Chloride 101 mEq/L mEq/L (97-110) Chloride Carbon Dioxide Anion Gap POC BUN 12 mg/dL mg/dL (7-23) BUN Creatinine POC Creatinine 1.2 mg/dL mg/dL (0.7-1.3) Estimated GFR Glucose POC Glucose 109 mg/dL H mg/dL (70-100) Calcium Ethyl Alcohol Medications Given: Discontinued Medications Chlordiazepoxide (Librium 25 Mg Prepack#6) 1 [facility] Stop: 03/21/17 00:52 Last Admin: 03/21/17 00:56 Dose: 1 btl Sodium Chloride (Ns) 1,000 mls @ 0 mls/hr IV ONCE ONE; Wide Open PRN Reason: Protocol Stop: 03/20/17 20:10 Last Admin: 03/20/17 21:00 Dose: 1,000 mls Point of Care Test Results: 03/20/17 20:06 POC Sodium 141 POC Potassium 3.2 L POC Chloride 101 POC BUN 12 POC Creatinine 1.2 POC Glucose 109 H Departure - Departure Disposition: Home, Routine, Self-Care Clinical Impression: Nasal bone fracture Qualifiers: Encounter type: initial encounter Fracture type: closed Qualified Code(s): S02.2XXA - Fracture of nasal bones, initial encounter for closed fracture Laceration of nose Qualifiers: Encounter type: initial encounter Qualified Code(s): S01.21XA - Laceration without foreign body of nose, initial encounter Alcohol intoxication Qualifiers: Complication of substance-induced condition: with unspecified complication Qualified Code(s): F10.929 - Alcohol use, unspecified with intoxication, unspecified Condition: Fair Instructions: Chlordiazepoxide/Clidinium (By mouth), Care For Your Stitches (ED ), Laceration (ED), Alcohol Intoxication (ED) Additional Instructions: Sutures need to be removed in 5 days. Return emergency depart for increasing headache, nausea, vomiting, fevers, chills, or any other concerns. Referrals: [facility],. [Clinic] - As per Instructions
[2017-03-20 20:29] LABS: INR 0.93 (0.83-1.16); PROTIME(PATIENT) 12.7 SEC (12.0-15.0)
[2017-03-20] MEDS ORDERED: IOPAMIDOL (ISOVUE-300) 100 ML BTL ONE (20:34)
[2017-03-20 20:41] VITALS: RESP 16; TEMP 97.9
[2017-03-21 00:47] VITALS: BP 136/86
[2017-03-21] MEDS ORDERED: CHLORDIAZEPOXIDE 25MG PREPK#6 BTL TAKEHOME ONE (00:51)
[2017-03-21 01:23] VITALS: PULSE 105; O2SAT 93
== END 2017-03-21 01:22 | disposition home or self-care (01) ==
LOC: EDUNIT#
PROC: 09QKXZZ Repair Nasal Mucosa and Soft Tissue, External Approach (ICD-10-PCS; principal; 2017-03-20)
DX: S02.2XXA Fracture of nasal bones, initial encounter for closed fracture (principal); S01.21XA Laceration without foreign body of nose, initial encounter; F10.929 Alcohol use, unspecified with intoxication, unspecified; E86.9 Volume depletion, unspecified; Z87.891 Personal history of nicotine dependence; W10.9XXA Fall (on) (from) unspecified stairs and steps, initial encounter
CPT/HCPCS: 12011; 70450; 71260; 72125; 72129; 72132; 74177; 96360; 99285; Q9967; 82947-QW; G0480